=== PATIENT | female | born 1960 | race Caucasian/White ===

== ENCOUNTER → 2017-04-11 | Outpatient (CLI) | payer MEDICAID ==
[~2017-04-11] MED LIST: ACETAMINOPHEN &1 TA1 PO; ACTOS45 MG PO; COREG25 MG PO; CYCLOBENZAPRINE10 MG PO; DIAZEPAM5 MG PO; GABAPENTIN 400400 MG PO; HYDROCODONE/ACE1 TA5 PO; KADIAN20 MG PO; LANTUS INS100 UNITS/ SC; LASIX20 MG PO; LINZESS145 MCG PO; LINZESS72 MCG PO; LIPITOR20 MG PO; LISINOPRIL 20MG20 MG PO; MELOXICAM7.5 MG PO; METFORMIN1000 MG PO; METOPROLOL25 MG PO; MORPHINE SULFAT20 M1 PO; MORPHINE SULFAT60 MG PO; PLAVIX75 MG PO; PREMARIN 0.60.625 MG PO
[2017-04-11 18:33] LABS: AMPHETAMINES/METAMPHETAMINES NEGATIVE ng/mL (<1000)
== END ==
LOC: LAB 16:19
PROVIDERS: Emergency Medicine
DX: Z79.899 Other long term (current) drug therapy (principal)